=== PATIENT | male | born 2000 | race Caucasian/White ===

== ENCOUNTER 2024-09-07 19:21 | Emergency (ER) | payer OTHER ==
[~2024-09-07] VITALS: Ht 170.2 cm; Wt 63.7 kg
[2024-09-07 19:27] VITALS: O2SAT 100
[2024-09-08] MEDS: KETOROLAC 15MG/ML VIAL IM ONE (00:52)
[2024-09-08 02:15] VITALS: TEMP 36.78072; O2SAT 100
[2024-09-08 02:40] VITALS: BP 129/78; PULSE 96; RESP 18
[2024-09-08] MEDS: IBUPROFEN 600MG TABLET PO ONE (02:40)
[2024-09-08] MEDS ORDERED: CEPH500T MT (04:16)
== END 2024-09-08 02:17 | disposition home or self-care (01) ==
LOC: ER 19:21
DX: S41.121A Laceration with foreign body of right upper arm, initial encounter (principal); W45.8XXA Other foreign body or object entering through skin, initial encounter; Y93.89 Activity, other specified; Y92.89 Other specified places as the place of occurrence of the external cause; Y99.8 Other external cause status
CPT/HCPCS: 99283; 70360; J1885; Z7610